=== PATIENT | male | born 1950 | race Caucasian/White ===

== ENCOUNTER 2018-04-27 10:44 | Day surgery (SDC) | payer MEDICARE ==
[~2018-04-27 10:44] MED LIST: LIDOCAINE 1% MDV 20ML VIAL SQ; fentaNYL 250 MCG/5 ML INJECTION (J3010) As Ordered
[2018-04-27] MEDS: LR 1,000 ML IV (11:00)
[2018-04-27] MEDS ORDERED: MIDAZOLAM INJ 2 MG/2 ML VIAL (J2250) As Ordered (11:10)
[2018-04-27] MEDS ORDERED: PROPOFOL 200 MG/20 ML VIAL As Ordered ×2 (11:11→13:29)
[2018-04-27] MEDS ORDERED: LIDOCAINE 2% INJ 100 MG/5 ML SDV (FOR ANES.) As Ordered (11:11)
[2018-04-27] MEDS ORDERED: dexameTHASONE 4 MG/ML 1ML VIAL (J1100) As Ordered (11:12)
[2018-04-27] MEDS ORDERED: ONDANSETRON 4MG/2ML VIAL (J2405) As Ordered (11:12)
[2018-04-27] MEDS ORDERED: KETOROLAC 60 MG/2 ML VIAL (J1885) As Ordered (11:13)
[2018-04-27] MEDS ORDERED: ROCURONIUM BROMIDE 50 MG/5 ML VIAL As Ordered (11:13)
[2018-04-27] MEDS: BUPIVACAINE LIPOSOME/PF 1.3% 20ML VIAL (13.3MG/ML)(EXPAREL)(C9290 PER1MG) As Ordered (13:50)
[2018-04-27] MEDS: BUPIVACAINE HCL 0.25% 30 ML VIAL As Ordered (13:50)
[2018-04-27] MEDS ORDERED: LR 1,000 ML IV (14:15)
[2018-04-27] MEDS ORDERED: PERCOCET 5MG/325MG TAB PO (14:15)
[2018-04-27] MEDS ORDERED: fentaNYL 100 MCG/2 ML INJECTION (J3010) IV (14:15)
[2018-04-27] MEDS ORDERED: METOCLOPRAMIDE INJ 10MG/2ML VIAL (J2765) IV (14:15)
[2018-04-27] MEDS ORDERED: ONDANSETRON 4MG/2ML VIAL (J2405) IV (14:15)
== END 2018-04-27 17:50 | disposition home or self-care (01) ==
LOC: M SDC 10:44
DX: K40.90 Unilateral inguinal hernia, without obstruction or gangrene, not specified as recurrent (principal); I10 Essential (primary) hypertension; K21.9 Gastro-esophageal reflux disease without esophagitis; Z79.82 Long term (current) use of aspirin; Z79.899 Other long term (current) drug therapy
CPT/HCPCS: 49505